=== PATIENT | female | born 1975 | race Caucasian/White ===

== ENCOUNTER → 2017-07-27 | Outpatient (CLI) | payer MEDICAID ==
[2017-07-27 13:37] LABS: BILIRUBIN, INDIRECT 0.04 mg/dL (0-0.9); BUN 12 mg/dL (7-18)
[2017-07-27 13:42] LABS: GFR (ESTIMATED) 68 ML/MIN (59-)
[2017-07-27 14:00] LABS: HEMOGLOBIN 12.3 g/dL (12.2-16.2); LYMPH # 2.4 K/mm3 (0.7-4.5); LYMPH % 40.9 % (10-50.0)
[2017-07-28 06:37] LABS: HIV Screen 4th Generation wRfx Non Reactive (Non Reactive)
[2017-07-28 10:39] LABS: HBsAg Screen Negative (Negative); Hep A Ab, IgM Negative (Negative); Hep B Core Ab, IgM Negative (Negative); Hep C Virus Ab <0.1 (0.0-0.9)
== END ==
LOC: CARL-LAB 09:29
PROVIDERS: Physical Medicine & Rehabilitation
DX: F11.20 Opioid dependence, uncomplicated (principal); Z79.899 Other long term (current) drug therapy
CPT/HCPCS: G0432